=== PATIENT | male | born 1945 | race Caucasian/White ===

== ENCOUNTER 2017-08-16 10:29 | Emergency (ER) | payer MEDICARE, OTHER ==
[~2017-08-16] VITALS: Ht 190.5 cm; Wt 95.5 kg
[2017-08-16 10:40] VITALS: BP 139/65; PULSE 66; RESP 16; TEMP 98.1; O2SAT 96
[2017-08-16] MEDS ORDERED: SODIUM CHLORIDE 0.9% FLUSH 10 ML FLUSH IVF PRN (11:00)
[2017-08-16] MEDS ORDERED: PAIN PUMP DILAUDID (11:10)
[2017-08-16] MEDS ORDERED: OXYC-392 PO (11:10)
[2017-08-16] MEDS ORDERED: LUNE1TAB8 PO (11:10)
[2017-08-16] MEDS ORDERED: URINARY MED (11:10)
[2017-08-16 11:30] LABS: AUTOMATED NEUTROPHIL # 4.6 TH/MM3 (1.8-7.7); BASOPHIL # 0.2 TH/MM3 (0-0.2); BASOPHIL % 2.9 % (0.0-2.0); EOSINOPHIL # 0.2 TH/MM3 (0-0.4); EOSINOPHIL % 3.5 % (0.0-4.0); HEMATOCRIT 42.9 % (39.0-51.0); HEMOGLOBIN 13.9 GM/DL (13.0-17.0); LYMPH % 18.8 % (9.0-44.0); LYMPHOCYTE # 1.3 TH/MM3 (1.0-4.8); MEAN CELL VOLUME 96.1 FL (80.0-100.0); MEAN CORPUSCULAR HEMOGLOBIN 31.1 PG (27.0-34.0); MEAN CORPUSCULAR HGB CONC 32.4 % (32.0-36.0); MEAN PLATELET VOLUME 7.4 FL (7.0-11.0); MONO % 9.9 % (0.0-8.0); MONOCYTE # 0.7 TH/MM3 (0-0.9); NEUT % 64.9 % (16.0-70.0); PLATELET COUNT 215 TH/MM3 (150-450); RED BLOOD COUNT 4.47 MIL/MM3 (4.50-5.90); RED CELL DISTRIBUTION WIDTH 14.5 % (11.6-17.2)
--- NOTE | 2017-08-16 11:30 | RADRPT ---
EXAM DATE/TIME: 08/16/2017 11:08 [facility] COMPARISON: No previous studies available for comparison. INDICATIONS : Right leg swelling. MEDICAL HISTORY : Back pain. SURGICAL HISTORY : Back surgeries. Shoulder surgery. ENCOUNTER: Initial ACUITY: 1 week PAIN SCORE: 1/10 LOCATION: Right leg. TECHNIQUE: Venous ultrasound of the leg was performed from the inguinal ligament to the proximal calf. Real-judy e, color Doppler and spectral tracing, compression and augmentation techniques were used. FINDINGS: There is normal compressibility of the deep venous system from the inguinal region to the proximal ca lf. No echogenic clot is seen in the lumen of the common femoral, femoral, popliteal, and posterior tibial veins. There is a normal response of the venous system to proximal and distal augmentation an d respiration. CONCLUSION: Negative for deep venous thrombosis. . Stevan Paul MD FACR on August 16, 2017 at 11:27 Board Certified Radiologist. This report was verified electronically.
[2017-08-16 11:39] LABS: CHLORIDE 103 MEQ/L (98-107); SODIUM (NA) 140 MEQ/L (136-145)
[2017-08-16 11:42] LABS: ALBUMIN 3.6 GM/DL (3.4-5.0); CALCIUM 8.1 MG/DL (8.5-10.1); GLUCOSE,RANDOM 103 MG/DL (74-106)
[2017-08-16 11:43] LABS: BICARBONATE 30.6 MEQ/L (21.0-32.0); BLOOD UREA NITROGEN 13 MG/DL (7-18)
[2017-08-16 11:44] LABS: INTERNATIONAL NORMALIZED RATIO 1.2 RATIO; PROTHROMBIN TIME - PATIENT 11.8 SEC (9.8-11.6)
[2017-08-16 11:46] VITALS: O2SAT 98
[2017-08-16 11:46] LABS: ALT (GPT) 21 U/L (12-78); AST (GOT) 30 U/L (15-37); CREATININE 0.87 MG/DL (0.60-1.30); GLOMERULAR FILTRATION RATE 87 ML/MIN (>89)
[2017-08-16 11:48] LABS: TOTAL BILIRUBIN ADULT 0.6 MG/DL (0.2-1.0); TOTAL PROTEIN 6.8 GM/DL (6.4-8.2)
[2017-08-16 11:49] LABS: ALKALINE PHOSPHATASE 57 U/L (45-117)
--- NOTE | 2017-08-16 12:35 | RADRPT ---
EXAM DATE/TIME: 08/16/2017 11:52 [facility] COMPARISON: No previous studies available for comparison. INDICATIONS : Red, swollen, painful, right ankle for 1 week. no known injury MEDICAL HISTORY : None. SURGICAL HISTORY : Spinal stimulator ENCOUNTER: Initial ACUITY: 1 week PAIN SCORE: 2/10 LOCATION: Right ankle FINDINGS: Three view exam was performed of the right ankle. The bony structures are in normal alignment. No e vidence of fracture, dislocation, or soft tissue swelling. The ankle mortise is intact. No radiopaq ue foreign bodies are seen. Bony mineralization is normal. CONCLUSION: Negative for fracture. Generalized soft tissue swelling Stevan Paul MD FACR on August 16, 2017 at 12:33 Board Certified Radiologist. This report was verified electronically.
--- NOTE | 2017-08-16 12:36 | RADRPT ---
EXAM DATE/TIME: 08/16/2017 11:56 [facility] COMPARISON: No previous studies available for comparison. INDICATIONS : Chest pain MEDICAL HISTORY : None. SURGICAL HISTORY : Spinal stimulator ENCOUNTER: Initial ACUITY: 3 days PAIN SCORE: 1/10 LOCATION: Bilateral chest FINDINGS: A single view of the chest demonstrates the lungs to be symmetrically aerated without evidence of mas s, infiltrate or effusion. The cardiomediastinal contours are unremarkable. Spinal stimulator noted Osseous structures are intact. CONCLUSION: No acute disease. Stevan Paul MD FACR on August 16, 2017 at 12:34 Board Certified Radiologist. This report was verified electronically.
[2017-08-16] MEDS ORDERED: CLIN300C5 PO (12:42)
--- NOTE | 2017-08-16 12:42 | PD ---
HPI Chief Complaint: Edema Time Seen by Provider: 10:45 Travel History International Travel<30 days: No Contact w/Intl Traveler<30days: No Traveled to known affect area: No History of Present Illness HPI Patient is a 71 year old male who comes in complaining of right leg swelling. He says it has been going on for the past week. He says he is traveling to [place] tomorrow, so he wanted to get it check out. He says it does not cause him much pain. He says he has a lot of chronic back issues, so he does not notice any other pains. He denies any injury to the leg. He denies chest pain or SOB. He denies fever or chills. He says he has not noticed any wounds or breaks in his skin. He has not noticed that anything makes the swelling better or worse. PFSH Past Medical History Hx Anticoagulant Therapy: No Cardiovascular Problems: No Cerebrovascular Accident: No Diabetes: No Genitourinary: Yes (urinary frequency ) Musculoskeletal: Yes (chronic back pain) Influenza Vaccination: Yes Past Surgical History Other Surgery: Yes (multiple back surgeries, pain pump ) Social History Alcohol Use: No Tobacco Use: No Substance Use: No Allergies-Medications (Allergen,Severity, Reaction): Coded Allergies: cefuroxime (Verified Allergy, Severe, 08/16/17) Reported Meds & Prescriptions Reported Meds & Active Scripts Active Reported Lunesta (Eszopiclone) 1 Mg Tab 1 Mg PO HS PRN [pain pump dilaudid] Oxycodone (Oxycodone HCl) 5 Mg Tab 5 Mg PO Q4H PRN [urinary med] Review of Systems Except as stated in HPI: all other systems reviewed are Neg General / Constitutional: No: Fever, Chills HENT: No: Headaches, Lightheadedness Cardiovascular: No: Chest Pain or Discomfort Respiratory: No: Shortness of Breath Gastrointestinal: No: Nausea, Vomiting Musculoskeletal: Positive: Edema, No: Pain Skin: No Rash, No Itching Neurologic: No: Weakness, Dizziness Physical Exam Narrative GENERAL: Awake and alert, in no acute distress. SKIN: Focused skin assessment warm/dry. Erythema and warmth of the right lower leg. No wounds or evidence of abscess. HEAD: Atraumatic. Normocephalic. EYES: Pupils equal and round. No scleral icterus. ENT: Mucous membranes pink and moist. NECK: Trachea midline. No JVD. CARDIOVASCULAR: Regular rate and rhythm. No murmur appreciated. RESPIRATORY: No accessory muscle use. Clear to auscultation. Breath sounds equal bilaterally. GASTROINTESTINAL: Abdomen soft, non-tender, nondistended. MUSCULOSKELETAL: No obvious deformities. No clubbing. No cyanosis. 2+ edema of the right lower extremity. No calf tenderness. Pedal pulses intact. NEUROLOGICAL: Awake and alert. No obvious cranial nerve deficits. Motor grossly within normal limits. Normal speech. PSYCHIATRIC: Appropriate mood and affect; insight and judgment normal. Data Data Last Documented VS Vital Signs Date Time Temp Pulse Resp B/P (MAP) Pulse Ox O2 Delivery O2 Flow Rate FiO2 08/16/17 11:55 97 Room Air 08/16/17 10:40 98.1 66 16 139/65 (89) Orders Orders Complete Blood Count With Diff (08/16/17 10:51) Comprehensive Metabolic Panel (08/16/17 10:51) Act Partial Throm Time (Ptt) (08/16/17 10:51) Prothrombin Time / Inr (Pt) (08/16/17 10:51) Iv Access Insert/Monitor (08/16/17 10:51) Ecg Monitoring (08/16/17 10:51) Oximetry (08/16/17 10:51) Oxygen Administration (08/16/17 10:51) Us Leg Venous Doppler (08/16/17 10:51) Sodium Chloride 0.9% Flush (Ns Flush) (08/16/17 11:00) Chest, Single Ap (08/16/17 ) Ankle, Complete ([id number]) (08/16/17 ) Labs Laboratory Tests Test 08/16/17 11:25 White Blood Count 7.0 TH/MM3 Red Blood Count 4.47 MIL/MM3 Hemoglobin 13.9 GM/DL Hematocrit 42.9 % Mean Corpuscular Volume 96.1 FL Mean Corpuscular Hemoglobin 31.1 PG Mean Corpuscular Hemoglobin Concent 32.4 % Red Cell Distribution Width 14.5 % Platelet Count 215 TH/MM3 Mean Platelet Volume 7.4 FL Neutrophils (%) (Auto) 64.9 % Lymphocytes (%) (Auto) 18.8 % Monocytes (%) (Auto) 9.9 % Eosinophils (%) (Auto) 3.5 % Basophils (%) (Auto) 2.9 % Neutrophils # (Auto) 4.6 TH/MM3 Lymphocytes # (Auto) 1.3 TH/MM3 Monocytes # (Auto) 0.7 TH/MM3 Eosinophils # (Auto) 0.2 TH/MM3 Basophils # (Auto) 0.2 TH/MM3 CBC Comment DIFF FINAL Differential Comment Prothrombin Time 11.8 SEC Prothromb Time International Ratio 1.2 RATIO Activated Partial Thromboplast Time 27.3 SEC Blood Urea Nitrogen 13 MG/DL Creatinine 0.87 MG/DL Random Glucose 103 MG/DL Total Protein 6.8 GM/DL Albumin 3.6 GM/DL Calcium Level 8.1 MG/DL Alkaline Phosphatase 57 U/L Aspartate Amino Transf (AST/SGOT) 30 U/L Alanine Aminotransferase (ALT/SGPT) 21 U/L Total Bilirubin 0.6 MG/DL Sodium Level 140 MEQ/L Potassium Level 4.0 MEQ/L Chloride Level 103 MEQ/L Carbon Dioxide Level 30.6 MEQ/L Anion Gap 6 MEQ/L Estimat Glomerular Filtration Rate 87 ML/MIN MDM Medical Decision Making Medical Screen Exam Complete: Yes Emergency Medical Condition: Yes Medical Record Reviewed: Yes Differential Diagnosis DVT vs cellulitis vs arthritis Narrative Course Patient is a 71-year-old male comes in complaining of right leg swelling. Exam shows edema of the right leg with erythema and warmth of the lower extremity. IV established, labs sent. Labs show no acute abnormalities. Doppler ultrasound performed shows no evidence of DVT. Chest x-ray shows no evidence of cardiomegaly. X-ray of the ankle shows no acute abnormalities. Patient will be treated for cellulitis with antibiotics. Advised to return any time for any worsening symptoms. Advised to return in a week for repeat ultrasound if her symptoms do not improve. Advised follow-up with a primary care doctor. Diagnosis Primary Impression: Cellulitis Qualified Codes: L03.115 - Cellulitis of right lower limb Patient Instructions: Cellulitis (ED), General Instructions Additional Instructions: Take all of your antibiotic. Follow-up with a primary care doctor. Return to the ED as needed for any worsening symptoms. Scripts Clindamycin (Clindamycin) 300 Mg Cap 300 MG PO Q6H for Infection for 7 Days, #28 CAP 0 Refills Prov: Leeann Bonilla MD 08/16/17 Disposition: DISCHARGE HOME Condition: Stable Leeann Bonilla MD Aug 16, 2017 12:42
== END 2017-08-16 12:46 | disposition home or self-care (01) ==
LOC: PHED 10:29
DX: L03.115 Cellulitis of right lower limb (principal); Z79.899 Other long term (current) drug therapy
CPT/HCPCS: 71010; 73610; 80053; 85025; 85610; 85730; 93971; 99285

== ENCOUNTER 2017-09-26 22:52 | Inpatient (IN) | payer MEDICARE, OTHER ==
[~2017-09-26] VITALS: Ht 190.5 cm; Wt 92.3 kg
[~2017-09-26 22:52] MED LIST: CLIN300C5 PO; LUNE1TAB8 PO; OXYC-392 PO; PAIN PUMP DILAUDID; URINARY MED
[2017-09-26 23:03] VITALS: BP 193/90; PULSE 88; RESP 20; TEMP 98.1; O2SAT 96
[2017-09-26] MEDS ORDERED: POTASOL PO (23:21)
[2017-09-26] MEDS ORDERED: ZANT150T2 PO (23:21)
[2017-09-26] MEDS ORDERED: WELLTAB39 PO (23:21)
[2017-09-26 23:26] VITALS: BP 189/82; PULSE 77; RESP 18; O2SAT 96
[2017-09-26] MEDS ORDERED: SODIUM CHLOR 0.9% 1000 ML INJ 1,000 ML IV SCH (23:43)
[2017-09-26] MEDS ORDERED: ONDANSETRON HCL 4 MG/2 ML VIAL IVP ONE (23:45)
[2017-09-26] MEDS ORDERED: SODIUM CHLORIDE 0.9% FLUSH 10 ML FLUSH IV FLUSH PRN (23:45)
--- NOTE | 2017-09-26 23:50 | PD ---
HPI Chief Complaint: GI Complaint Time Seen by Provider: 23:43 Travel History International Travel<30 days: No Contact w/Intl Traveler<30days: No Traveled to known affect area: No History of Present Illness HPI The patient is a 71-year-old male that complains of nausea vomiting and bilateral lower abdominal pain and constipation for 4 hours. The patient is on a Dilaudid pump and takes oxycodone 10 mg daily. He has been on Relistor 2 weeks ago for opioid-induced constipation. He has not had any relief*in 2 weeks except 2 hours ago when he was given a shot of 6 mg subcutaneous. He has never had any abdominal surgeries and still has his appendix and gallbladder. He has had multiple enemas at home and takes an [id number] stool softener. He takes the narcotics for chronic back pain. PFSH Past Medical History Hx Anticoagulant Therapy: No Cardiovascular Problems: No Cerebrovascular Accident: No Diabetes: No Diminished Hearing: No Genitourinary: Yes (urinary frequency ) Musculoskeletal: Yes (chronic back pain) Tetanus Vaccination: Unknown Influenza Vaccination: No Past Surgical History Other Surgery: Yes (multiple back surgeries, pain pump ) Social History Alcohol Use: No Tobacco Use: No Substance Use: No Allergies-Medications (Allergen,Severity, Reaction): Coded Allergies: cefuroxime (Verified Allergy, Severe, 09/26/17) Reported Meds & Prescriptions Reported Meds & Active Scripts Active Reported Zantac (Ranitidine HCl) 150 Mg Tab 150 Mg PO DAILY Potassium Citrate-Citric Acid 1,100-334 Mg/5 Ml Soln 15 Ml PO QID Wellbutrin Xl 24 HR (Bupropion HCl) 300 Mg Tab 300 Mg PO DAILY Lunesta (Eszopiclone) 1 Mg Tab 1 Mg PO HS PRN [pain pump dilaudid] Oxycodone (Oxycodone HCl) 5 Mg Tab 5 Mg PO Q4H PRN [urinary med] Review of Systems Except as stated in HPI: all other systems reviewed are Neg Physical Exam Narrative GENERAL: The patient is alert, oriented 3 in moderate apparent distress with his abdominal discomfort. His vital signs show blood pressure 193/90 but otherwise are normal. SKIN: Focused skin assessment warm/dry. HEAD: Atraumatic. Normocephalic. EYES: Pupils equal and round. No scleral icterus. No injection or drainage. ENT: No nasal bleeding or discharge. Mucous membranes pink and moist. NECK: Trachea midline. No JVD. CARDIOVASCULAR: Regular rate and rhythm. No murmur appreciated. RESPIRATORY: No accessory muscle use. Clear to auscultation. Breath sounds equal bilaterally. GASTROINTESTINAL: Abdomen soft, with tenderness to direct palpation in the left upper quadrant and right lower quadrant, nondistended. Hepatic and splenic margins not palpable. No guarding or rebound is present. MUSCULOSKELETAL: No obvious deformities. No clubbing. No cyanosis. No edema. NEUROLOGICAL: Awake and alert. No obvious cranial nerve deficits. Motor grossly within normal limits. Normal speech. PSYCHIATRIC: Appropriate mood and affect; insight and judgment normal. Data Data Last Documented VS Vital Signs Date Time Temp Pulse Resp B/P (MAP) Pulse Ox O2 Delivery O2 Flow Rate FiO2 09/26/17 23:26 77 18 189/82 (117) 96 Room Air 09/26/17 23:03 98.1 Orders Orders Complete Blood Count With Diff (09/26/17 23:43) Comprehensive Metabolic Panel (09/26/17 23:43) Lipase (09/26/17 23:43) Urinalysis - C+S If Indicated (09/26/17 23:43) Ct Abd/Pel W Iv Contrast(Rout) (09/26/17 23:43) Iv Access Insert/Monitor (09/26/17 23:43) Ecg Monitoring (09/26/17 23:43) Oximetry (09/26/17 23:43) Ondansetron Inj (Zofran Inj) (09/26/17 23:45) Sodium Chlor 0.9% 1000 Ml Inj (Ns 1000 M (09/26/17 23:43) Sodium Chloride 0.9% Flush (Ns Flush) (09/26/17 23:45) Iohexol 350 Inj (Omnipaque 350 Inj) (09/27/17 00:50) Prothrombin Time / Inr (Pt) (09/27/17 01:14) Act Partial Throm Time (Ptt) (09/27/17 01:14) Admit To Inpatient (09/27/17 ) Vital Signs (Adult) Q4H (09/27/17 01:23) Activity Oob With Assistance (09/27/17 01:23) Diet Npo (09/27/17 Breakfast) Sodium Chlor 0.9% 1000 Ml Inj (Ns 1000 M (09/27/17 01:23) Sodium Chloride 0.9% Flush (Ns Flush) (09/27/17 01:30) Sodium Chloride 0.9% Flush (Ns Flush) (09/27/17 09:00) Acetaminophen (Tylenol) (09/27/17 01:30) Ondansetron Inj (Zofran Inj) (09/27/17 01:30) Comprehensive Metabolic Panel (09/28/17 06:00) Complete Blood Count With Diff (09/28/17 06:00) Scd Bilateral/Knee High MARGARITA.BID (09/27/17 01:23) Naloxone Inj (Narcan Inj) (09/27/17 01:30) Docusate Sodium-Senna (Shantell-Colace) (09/27/17 09:00) Magnesium Hydroxide Liq (Milk Of Magnesi (09/27/17 01:30) Sennosides (Senokot) (09/27/17 01:30) Bisacodyl Supp (Dulcolax Supp) (09/27/17 01:30) Lactulose Liq (Lactulose Liq) (09/27/17 01:30) Inpatient Certification (09/27/17 ) Piperacil-Tazo 3.375 Gm Premix (Zosyn 3. (09/27/17 02:00) Admit Order (Ed Use Only) (09/27/17 01:26) Hydromorphone Pf Inj (Dilaudid Pf Inj) (09/27/17 01:30) Labs Laboratory Tests Test 09/26/17 23:50 09/27/17 00:00 09/27/17 00:50 White Blood Count 14.2 TH/MM3 Red Blood Count 5.01 MIL/MM3 Hemoglobin 15.5 GM/DL Hematocrit 45.9 % Mean Corpuscular Volume 91.5 FL Mean Corpuscular Hemoglobin 30.9 PG Mean Corpuscular Hemoglobin Concent 33.8 % Red Cell Distribution Width 13.2 % Platelet Count 286 TH/MM3 Mean Platelet Volume 8.0 FL Neutrophils (%) (Auto) 87.2 % Lymphocytes (%) (Auto) 6.5 % Monocytes (%) (Auto) 4.1 % Eosinophils (%) (Auto) 0.6 % Basophils (%) (Auto) 1.6 % Neutrophils # (Auto) 12.4 TH/MM3 Lymphocytes # (Auto) 0.9 TH/MM3 Monocytes # (Auto) 0.6 TH/MM3 Eosinophils # (Auto) 0.1 TH/MM3 Basophils # (Auto) 0.2 TH/MM3 CBC Comment DIFF FINAL Differential Comment Blood Urea Nitrogen 15 MG/DL Creatinine 0.87 MG/DL Random Glucose 144 MG/DL Total Protein 8.0 GM/DL Albumin 3.5 GM/DL Calcium Level 9.5 MG/DL Alkaline Phosphatase 62 U/L Aspartate Amino Transf (AST/SGOT) 23 U/L Alanine Aminotransferase (ALT/SGPT) 21 U/L Total Bilirubin 0.5 MG/DL Sodium Level 135 MEQ/L Potassium Level 4.1 MEQ/L Chloride Level 101 MEQ/L Carbon Dioxide Level 27.7 MEQ/L Anion Gap 6 MEQ/L Estimat Glomerular Filtration Rate 87 ML/MIN Lipase 59 U/L Prothrombin Time 11.8 SEC Prothromb Time International Ratio 1.2 RATIO Activated Partial Thromboplast Time 31.1 SEC Urine Color YELLOW Urine Turbidity CLEAR Urine pH 8.5 Urine Specific Ethel 1.020 Urine Protein NEG mg/dL Urine Glucose (UA) NEG mg/dL Urine Ketones 15 mg/dL Urine Occult Blood TRACE Urine Nitrite NEG Urine Bilirubin NEG Urine Leukocyte Esterase NEG Urine RBC 3-5 /hpf Urine WBC 0-2 /hpf Urine Squamous Epithelial Cells 0-5 /hpf Urine Bacteria NONE /hpf Microscopic Urinalysis Comment CULT NOT INDICATED MDM Medical Decision Making Medical Screen Exam Complete: Yes Emergency Medical Condition: Yes Medical Record Reviewed: Yes Interpretation(s) The CBC shows a white count of 14,200 with 87% neutrophils. The complete metabolic profile shows a GFR of 87, glucose 144 and sodium 135 but is otherwise unremarkable. The lipase is normal. The CT abdomen pelvis shows acute cholecystitis. Also noted is diverticulosis without any evidence for diverticulitis and renal cysts with malrotated right kidney. The urinalysis shows trace occult blood with 15 ketones but is otherwise unremarkable and culture is not indicated. The EKG shows sinus rhythm with a rate of [address] elevation or depression. Differential Diagnosis Opioid-induced constipation, appendicitis, cholecystitis, colitis, electrolyte disorder, anemia, cholelithiasis with colic, urinary tract infection, pyelonephritis Narrative Course It is now 0118 in the morning and the pain is shifted to the right upper quadrant and has increased. The patient has acute cholecystitis. The patient' s pain is increasing, we are going to be giving him Dilaudid at this time. The patient will be admitted to the [facility] service, Dr. Olvera and Dr. Salazar will be consulting. I discussed the patient with both physicians. Physician Communication Physician Communication I discussed the patient with Drs. Salazar and Wade. The patient will be admitted to [facility]. Diagnosis Primary Impression: Acute cholecystitis Tez Chiang MD Sep 26, 2017 23:50
[2017-09-27] VITALS (7 sets, daily range): BP systolic 140–186; BP diastolic 68–86; PULSE 75–89; RESP 12–20; TEMP 96.7–100.7; O2SAT 92–98
[2017-09-27 00:09] LABS: AUTOMATED NEUTROPHIL # 12.4 TH/MM3 (1.8-7.7); BASOPHIL # 0.2 TH/MM3 (0-0.2); BASOPHIL % 1.6 % (0.0-2.0); EOSINOPHIL # 0.1 TH/MM3 (0-0.4); EOSINOPHIL % 0.6 % (0.0-4.0); HEMATOCRIT 45.9 % (39.0-51.0); HEMOGLOBIN 15.5 GM/DL (13.0-17.0); LYMPH % 6.5 % (9.0-44.0); LYMPHOCYTE # 0.9 TH/MM3 (1.0-4.8); MEAN CELL VOLUME 91.5 FL (80.0-100.0); MEAN CORPUSCULAR HEMOGLOBIN 30.9 PG (27.0-34.0); MEAN CORPUSCULAR HGB CONC 33.8 % (32.0-36.0); MONO % 4.1 % (0.0-8.0); MONOCYTE # 0.6 TH/MM3 (0-0.9); NEUT % 87.2 % (16.0-70.0); PLATELET COUNT 286 TH/MM3 (150-450); RED BLOOD COUNT 5.01 MIL/MM3 (4.50-5.90); RED CELL DISTRIBUTION WIDTH 13.2 % (11.6-17.2); WHITE BLOOD COUNT 14.2 TH/MM3 (4.0-11.0)
[2017-09-27 00:19] LABS: CHLORIDE 101 MEQ/L (98-107); SODIUM (NA) 135 MEQ/L (136-145)
[2017-09-27 00:23] LABS: ALBUMIN 3.5 GM/DL (3.4-5.0); BICARBONATE 27.7 MEQ/L (21.0-32.0); BLOOD UREA NITROGEN 15 MG/DL (7-18); CALCIUM 9.5 MG/DL (8.5-10.1); GLUCOSE,RANDOM 144 MG/DL (74-106)
[2017-09-27 00:26] LABS: ALT (GPT) 21 U/L (12-78); AST (GOT) 23 U/L (15-37); CREATININE 0.87 MG/DL (0.60-1.30); GLOMERULAR FILTRATION RATE 87 ML/MIN (>89)
[2017-09-27 00:28] LABS: TOTAL BILIRUBIN ADULT 0.5 MG/DL (0.2-1.0)
[2017-09-27 00:29] LABS: ALKALINE PHOSPHATASE 62 U/L (45-117)
[2017-09-27] MEDS ORDERED: IOHEXOL 350 MG/ML 10 ML VIAL (for RAD DIAG) IVCONTRAST ONE (00:50)
[2017-09-27 01:04] LABS: BILIRUBIN, URINE NEG (NEG); BLOOD, URINE TRACE (NEG); GLUCOSE,URINE NEG (NEG); KETONE, URINE 15 mg/dL (NEG); NITRITE,URINE NEG (NEG); PH, URINE 8.5 (5.0-8.5); URINE LEUKOCYTE ESTERASE NEG (NEG)
--- NOTE | 2017-09-27 01:10 | RADRPT ---
EXAM DATE/TIME: 09/27/2017 00:46 [facility] COMPARISON: No previous studies available for comparison. INDICATIONS : Severe abdominal pain, constipation, nausea and vomiting for 4 days IV CONTRAST: 96 cc Omnipaque 350 (iohexol) IV ORAL CONTRAST: No oral contrast ingested. RADIATION DOSE: 13.44 CTDIvol (mGy) MEDICAL HISTORY : chronic back pain SURGICAL HISTORY : multiple back surgeries, pain pump ENCOUNTER: Initial ACUITY: 4 - 6 days PAIN SCALE: 10/10 LOCATION: abdomen TECHNIQUE: Volumetric scanning of the abdomen and pelvis was performed. Using automated exposure control and ad justment of the mA and/or kV according to patient size, radiation dose was kept as low as reasonably achievable to obtain optimal diagnostic quality images. DICOM format image data is available electro nically for review and comparison. FINDINGS: Few calcified granulomas are noted in the spleen. The pancreas, adrenals are unremarkable. 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 Scattered left bakari al cysts are noted the largest measuring up to 2.8 cm the middle pole. The urinary bladder, prostate unremarkable. There is diverticulosis of the sigmoid colon and descending colon without evidence of d iverticulitis. A moderate amount of stool is seen within the large bowel. There are no dilated loops seen to suggest obstruction. The gallbladder is abnormal. It is mildly distended and there is pericho lecystic stranding identified. There is mild wall thickening. The appearance is consistent with nigel cystitis. The patient has a spinal stimulator and the leads are seen within the posterior aspect of t he spinal canal is well as apparent pain with lead terminating at T11 anteriorly within the thecal sa c. There are post laminectomy and posterior fusion changes of the lower lumbar spine as well as arthr odesis screws across the right sacroiliac joint. CONCLUSION: 1. Abnormal appearance of the gallbladder characteristic of cholecystitis. 2. Diverticulosis without diverticulitis. 3. Renal cysts and malrotated right kidney. Ruben Gamboa MD on September 27, 2017 at 1:04 Board Certified Radiologist. This report was verified electronically.
[2017-09-27 01:12] LABS: SQUAMOUS EPITHELIAL CELL URINE 0-5 /hpf (0-5); URINE COLOR YELLOW (YELLW/STRAW); WBC, URINE 0-2 /hpf (0-5)
[2017-09-27 01:27] LABS: INTERNATIONAL NORMALIZED RATIO 1.2 RATIO; PROTHROMBIN TIME - PATIENT 11.8 SEC (9.8-11.6)
[2017-09-27] MEDS ORDERED: ONDANSETRON HCL 4 MG/2 ML VIAL IV ONE (01:30)
[2017-09-27] MEDS ORDERED: ACETAMINOPHEN 325 MG TAB PO PRN (01:30)
[2017-09-27] MEDS ORDERED: SENNOSIDES 8.6 MG TAB PO PRN (01:30)
[2017-09-27] MEDS ORDERED: SODIUM CHLORIDE 0.9% FLUSH 10 ML FLUSH IV FLUSH PRN (01:30)
[2017-09-27] MEDS ORDERED: MAGNESIUM HYDROXIDE SUSP 30 ML CUP PO PRN (01:30)
[2017-09-27] MEDS ORDERED: ONDANSETRON HCL 4 MG/2 ML VIAL IVP PRN (01:30)
[2017-09-27] MEDS ORDERED: HYDROmorphone HCL PF 1 MG/ML VIAL IVP ONE (01:30)
[2017-09-27] MEDS ORDERED: NALOXONE HCL 0.4 MG/ML AMP IV PUSH PRN (01:30)
[2017-09-27] MEDS: SODIUM CHLOR 0.9% 1000 ML INJ 1,000 ML IV SCH ×3 (01:33→20:53)
[2017-09-27] MEDS: HYDROmorphone HCL PF 2 MG/ML VIAL IV PUSH PRN ×2 (01:33→06:03)
[2017-09-27] MEDS: PIPERACIL-TAZO 3.375 GM PREMIX 50 ML IV SCH ×4 (01:33→20:52)
[2017-09-27] MEDS: BISACODYL 10 MG SUPP RECTAL PRN (06:08)
--- NOTE | 2017-09-27 08:51 | HHI.HP ---
[facility] Physician Dewayne Nichols M.D. Admission Diagnosis acute cholecystitis Diagnoses: Chief Complaint: Abdominal pain and nausea Travel History International Travel<30 Days: No Contact w/Intl Traveler <30 Da: No Traveled to Known Affected Are: No History of Present Illness This patient is a 71-year-old gentleman with a history of chronic pain on physical Dilaudid pump who came in with acute onset of right upper quadrant abdominal pain associated with severe nausea and vomiting. Pain was severe and is somewhat relieved with Dilaudid although not resolved. He actually has had intermittent abdominal discomfort over the last several weeks. He denies any abdominal surgeries but admits he has chronic constipation which is per his providers due to opioids. He has recently been started on relistor with some relief. The patient has not had any fevers or chills, there is been no hematemesis or hematochezia. Patient is admitted to the hospital due to these symptoms. A CT of the abdomen and pelvis was worrisome for cholecystitis. Review of Systems Constitutional: DENIES: Diaphoretic episodes, Fatigue, Fever, Weight gain, Weight loss, Chills, Dizziness, Change in appetite, Night Sweats Endocrine: DENIES: Heat/cold intolerance, Polydipsia, Polyuria, Polyphagia Eyes: DENIES: Blurred vision, Diplopia, Eye inflammation, Eye pain, Vision loss , Photosensitivity, Double Vision Ears, nose, mouth, throat: DENIES: Tinnitus, Hearing loss, Vertigo, Nasal discharge, Oral lesions, Throat pain, Hoarseness, Ear Pain, Running Nose, Epistaxis, Sinus Pain, Toothache, Odynophagia Respiratory: DENIES: Apneas, Cough, Snoring, Wheezing, Hemoptysis, Sputum production, Shortness of breath Cardiovascular: DENIES: Chest pain, Palpitations, Syncope, Dyspnea on Exertion , PND, Lower Extremity Edema, Orthopnea, Claudication Gastrointestinal: COMPLAINS OF: Abdominal pain, Constipation, Nausea, Vomiting , DENIES: Black stools, Bloody stools, Diarrhea, Difficulty Swallowing, Anorexia Genitourinary: DENIES: Sexual dysfunction, Urinary frequency, Urinary incontinence, Urgency, Hematuria, Dysuria, Nocturia, Penile Discharge, Testicular Pain, Testicular Swelling Musculoskeletal: DENIES: Joint pain, Muscle aches, Stiffness, Joint Swelling, Back pain, Neck pain Integumentary: DENIES: Abnormal pigmentation, Nail changes, Pruritus, Rash Hematologic/lymphatic: DENIES: Bruising, Lymphadenopathy Immunologic/allergic: DENIES: Eczema, Urticaria Neurologic: DENIES: Abnormal gait, Headache, Localized weakness, Paresthesias, Seizures, Speech Problems, Tremor, Poor Balance Psychiatric: DENIES: Anxiety, Confusion, Mood changes, Depression, Hallucinations, Agitation, Suicidal Ideation, Homicidal Ideation, Delusions Except as stated in HPI: all other systems reviewed are Neg Past Family Social History Past Medical History Chronic back pain Anxiety/depression Geronimo's esophagitis Past Surgical History Multiple back surgeries with Dilaudid implanted pump Reported Medications Reviewed in the EMR, recently started relistor for constipation related to opioids Allergies: Coded Allergies: cefuroxime (Verified Allergy, Severe, 09/26/17) Active Ordered Medications In the EMR Family History Mother and father both in their 80s Social History No tobacco or alcohol dependency, lives with his Physical Exam Vital Signs Vital Signs Date Time Temp Pulse Resp B/P (MAP) Pulse Ox O2 Delivery O2 Flow Rate FiO2 09/27/17 03:04 76 18 97 09/27/17 03:03 97.1 78 20 184/84 (117) 95 09/27/17 02:40 78 18 176/84 (114) 98 Room Air 09/27/17 01:51 78 18 186/86 (119) 97 Room Air 09/26/17 23:26 77 18 189/82 (117) 96 Room Air 09/26/17 23:03 98.1 88 20 193/90 (124) 96 Physical Exam GENERAL: This is a well-nourished, well-developed patient, complaining of back and right upper quadrant pain SKIN: No rashes, ecchymoses or lesions. Cool and dry. HEAD: Atraumatic. Normocephalic. No temporal or scalp tenderness. EYES: Pupils equal round and reactive. Extraocular motions intact. No scleral icterus. No injection or drainage. ENT: Nose without bleeding, purulent drainage or septal hematoma. Throat without erythema, tonsillar hypertrophy or exudate. Uvula midline. Airway patent. NECK: Trachea midline. No JVD or lymphadenopathy. Supple, nontender, no meningeal signs. CARDIOVASCULAR: Regular rate and rhythm without murmurs, gallops, or rubs. RESPIRATORY: Clear to auscultation. Breath sounds equal bilaterally. No wheezes , rales, or rhonchi. GASTROINTESTINAL: There is right upper quadrant pain with positive Spencer sign, dry mucous membranes, Abdomen soft, non-tender, nondistended. No hepato- splenomegaly, or palpable masses. No guarding. MUSCULOSKELETAL: Extremities without clubbing, cyanosis, or edema. No joint tenderness, effusion, or edema noted. No calf tenderness. Negative Homans sign bilaterally. NEUROLOGICAL: Awake and alert. Cranial nerves II through XII intact. Motor and sensory grossly within normal limits. Five out of 5 muscle strength in all muscle groups. Normal speech. Laboratory Laboratory Tests Test 09/26/17 23:50 09/27/17 00:00 09/27/17 00:50 White Blood Count 14.2 Red Blood Count 5.01 Hemoglobin 15.5 Hematocrit 45.9 Mean Corpuscular Volume 91.5 Mean Corpuscular Hemoglobin 30.9 Mean Corpuscular Hemoglobin Concent 33.8 Red Cell Distribution Width 13.2 Platelet Count 286 Mean Platelet Volume 8.0 Neutrophils (%) (Auto) 87.2 Lymphocytes (%) (Auto) 6.5 Monocytes (%) (Auto) 4.1 Eosinophils (%) (Auto) 0.6 Basophils (%) (Auto) 1.6 Neutrophils # (Auto) 12.4 Lymphocytes # (Auto) 0.9 Monocytes # (Auto) 0.6 Eosinophils # (Auto) 0.1 Basophils # (Auto) 0.2 CBC Comment DIFF FINAL Differential Comment Blood Urea Nitrogen 15 Creatinine 0.87 Random Glucose 144 Total Protein 8.0 Albumin 3.5 Calcium Level 9.5 Alkaline Phosphatase 62 Aspartate Amino Transf (AST/SGOT) 23 Alanine Aminotransferase (ALT/SGPT) 21 Total Bilirubin 0.5 Sodium Level 135 Potassium Level 4.1 Chloride Level 101 Carbon Dioxide Level 27.7 Anion Gap 6 Estimat Glomerular Filtration Rate 87 Lipase 59 Prothrombin Time 11.8 Prothromb Time International Ratio 1.2 Activated Partial Thromboplast Time 31.1 Urine Color YELLOW Urine Turbidity CLEAR Urine pH 8.5 Urine Specific Gordon 1.020 Urine Protein NEG Urine Glucose (UA) NEG Urine Ketones 15 Urine Occult Blood TRACE Urine Nitrite NEG Urine Bilirubin NEG Urine Leukocyte Esterase NEG Urine RBC 3-5 Urine WBC 0-2 Urine Squamous Epithelial Cells 0-5 Urine Bacteria NONE Microscopic Urinalysis Comment CULT NOT INDICATED Result Diagram: 09/26/17234909/26/172349 Imaging Last Impressions Abdomen/Pelvis CT 09/26/172342 Signed Impressions: Service Date/Time: Wednesday, September 27, 2017 00:46 - CONCLUSION: 1. Abnormal appearance of the gallbladder characteristic of cholecystitis. 2. Diverticulosis without diverticulitis. 3. Renal cysts and malrotated right kidney. MD Alicia Hill VTE Risk Assessment Alicia VTE Risk Assessment: Mod/High Risk (score >= 2) VTE Pharm Contraindication: preop for surgery Caprini Risk Assessment Model Point Value = 1 Point Value = 2 Point Value = 3 Point Value = 5 Age 41-60 Minor surgery BMI > 25 kg/m2 Swollen legs Varicose veins or History of unexplained or recurrent spontaneous Oral contraceptives or hormone replacement Sepsis (< 1 month) Serious lung disease, including pneumonia (< 1 month) Abnormal pulmonary function Acute myocardial infarction Congestive heart failure (< 1 month) History of inflammatory bowel disease Medical patient at bed rest Age 61-74 Arthroscopic surgery Major open surgery (> 45 min) Laparoscopic surgery (> 45 min) Malignancy Confined to bed (> 72 hours) Immobilizing plaster cast Central venous access Age >= 75 History of VTE Family history of VTE Factor V Leiden Prothrombin [id number] Lupus anticoagulant Anticardiolipin antibodies Elevated serum homocysteine Heparin-induced thrombocytopenia Other congenital or acquired thrombophilia Stroke (< 1 month) Elective arthroplasty Hip, pelvis, or leg fracture Acute spinal cord injury (< 1 month) Prophylaxis Regimen Total Risk Factor Score Risk Level Prophylaxis Regimen 0-1 Low Early ambulation 2 Moderate Order ONE of the following: *Sequential Compression Device (SCD) *Heparin 5000 units SQ BID 3-4 Higher Order ONE of the following medications: *Heparin 5000 units SQ TID *Enoxaparin/Lovenox 40 mg SQ daily (WT < 150 kg, CrCl > 30 mL/min) *Enoxaparin/Lovenox 30 mg SQ daily (WT < 150 kg, CrCl > 10-29 mL/min) *Enoxaparin/Lovenox 30 mg SQ BID (WT < 150 kg, CrCl > 30 mL/min) AND/OR *Sequential Compression Device (SCD) 5 or more Highest Order ONE of the following medications: *Heparin 5000 units SQ TID (Preferred with Epidurals) *Enoxaparin/Lovenox 40 mg SQ daily (WT < 150 kg, CrCl > 30 mL/min) *Enoxaparin/Lovenox 30 mg SQ daily (WT < 150 kg, CrCl > 10-29 mL/min) *Enoxaparin/Lovenox 30 mg SQ BID (WT < 150 kg, CrCl > 30 mL/min) AND *Sequential Compression Device (SCD) Assessment and Plan Problem List: (1) Chronic back pain ICD Code: M54.9 - Dorsalgia, unspecified; G89.29 - Other chronic pain Plan: Patient on Dilaudid with Percocet at home due to chronic back pain. Pain management (2) Constipation due to opioid therapy ICD Code: K59.03 - Drug induced constipation; T40.2X5A - Adverse effect of other opioids, initial encounter Plan: Ptn on Relistor (3) Acute cholecystitis ICD Code: K81.0 - Acute cholecystitis Status: Acute Plan: Surgery evaluation pending Continue with nothing by mouth status, IV hydration, continue with IV Dilaudid and empiric Zosyn Physician Certification 2 Midnight Certification Type: Admission for Inpatient Services Order for Inpatient Services The services are ordered in accordance with Medicare regulations or non- Medicare payer requirements, as applicable. In the case of services not specified as inpatient-only, they are appropriately provided as inpatient services in accordance with the 2-midnight benchmark. Estimated LOS (days): 3 3 days is the estimated time the patient will need to remain in the hospital, assuming treatment plan goals are met and no additional complications. Post-Hospital Plan: Teressa Phillip MD Sep 27, 2017 08:51
[2017-09-27] MEDS: SODIUM CHLORIDE 0.9% FLUSH 10 ML FLUSH IV FLUSH SCH ×2 (09:00→20:53)
[2017-09-27] MEDS: DOCUSATE SODIUM 50 MG/SENNA 8.6 MG TAB PO SCH ×2 (09:04→20:54)
[2017-09-27] MEDS: buPROPion HCL 150 MG SUSTAINED RELEASE TAB PO SCH ×2 (09:04→20:55)
--- NOTE | 2017-09-27 11:29 | PD.CAR.PN ---
CVT Progress Note Subjective/Hospital Course: Consult received Full dictation TF Kinga Rodriguez Objective: Vital Signs Date Time Temp Pulse Resp B/P (MAP) Pulse Ox O2 Delivery O2 Flow Rate FiO2 09/27/17 08:00 97.0 77 14 177/81 (113) 93 09/27/17 03:04 76 18 97 09/27/17 03:03 97.1 78 20 184/84 (117) 95 09/27/17 02:40 78 18 176/84 (114) 98 Room Air 09/27/17 01:51 78 18 186/86 (119) 97 Room Air 09/26/17 23:26 77 18 189/82 (117) 96 Room Air 09/26/17 23:03 98.1 88 20 193/90 (124) 96 Labs: Laboratory Tests Test 09/26/17 23:50 09/27/17 00:00 09/27/17 00:50 White Blood Count 14.2 TH/MM3 (4.0-11.0) Red Blood Count 5.01 MIL/MM3 (4.50-5.90) Hemoglobin 15.5 GM/DL (13.0-17.0) Hematocrit 45.9 % (39.0-51.0) Mean Corpuscular Volume 91.5 FL (80.0-100.0) Mean Corpuscular Hemoglobin 30.9 PG (27.0-34.0) Mean Corpuscular Hemoglobin Concent 33.8 % (32.0-36.0) Red Cell Distribution Width 13.2 % (11.6-17.2) Platelet Count 286 TH/MM3 (150-450) Mean Platelet Volume 8.0 FL (7.0-11.0) Neutrophils (%) (Auto) 87.2 % (16.0-70.0) Lymphocytes (%) (Auto) 6.5 % (9.0-44.0) Monocytes (%) (Auto) 4.1 % (0.0-8.0) Eosinophils (%) (Auto) 0.6 % (0.0-4.0) Basophils (%) (Auto) 1.6 % (0.0-2.0) Neutrophils # (Auto) 12.4 TH/MM3 (1.8-7.7) Lymphocytes # (Auto) 0.9 TH/MM3 (1.0-4.8) Monocytes # (Auto) 0.6 TH/MM3 (0-0.9) Eosinophils # (Auto) 0.1 TH/MM3 (0-0.4) Basophils # (Auto) 0.2 TH/MM3 (0-0.2) CBC Comment DIFF FINAL Differential Comment Blood Urea Nitrogen 15 MG/DL (7-18) Creatinine 0.87 MG/DL (0.60-1.30) Random Glucose 144 MG/DL (74-106) Total Protein 8.0 GM/DL (6.4-8.2) Albumin 3.5 GM/DL (3.4-5.0) Calcium Level 9.5 MG/DL (8.5-10.1) Alkaline Phosphatase 62 U/L (45-117) Aspartate Amino Transf (AST/SGOT) 23 U/L (15-37) Alanine Aminotransferase (ALT/SGPT) 21 U/L (12-78) Total Bilirubin 0.5 MG/DL (0.2-1.0) Sodium Level 135 MEQ/L (136-145) Potassium Level 4.1 MEQ/L (3.5-5.1) Chloride Level 101 MEQ/L (98-107) Carbon Dioxide Level 27.7 MEQ/L (21.0-32.0) Anion Gap 6 MEQ/L (5-15) Estimat Glomerular Filtration Rate 87 ML/MIN (>89) Lipase 59 U/L (73-393) Prothrombin Time 11.8 SEC (9.8-11.6) Prothromb Time International Ratio 1.2 RATIO Activated Partial Thromboplast Time 31.1 SEC (24.3-30.1) Urine Color YELLOW (YELLW/STRAW) Urine Turbidity CLEAR (CLEAR) Urine pH 8.5 (5.0-8.5) Urine Specific [place] 1.020 (1.002-1.035) Urine Protein NEG mg/dL (NEG-TRACE) Urine Glucose (UA) NEG mg/dL (NEG) Urine Ketones 15 mg/dL (NEG) Urine Occult Blood TRACE (NEG) Urine Nitrite NEG (NEG) Urine Bilirubin NEG (NEG) Urine Leukocyte Esterase NEG (NEG) Urine RBC 3-5 /hpf (0-3) Urine WBC 0-2 /hpf (0-5) Urine Squamous Epithelial Cells 0-5 /hpf (0-5) Urine Bacteria NONE /hpf (NONE) Microscopic Urinalysis Comment CULT NOT INDICATED Result Diagram: 09/26/17 2350 09/26/17 2350 Sarita White MD Sep 27, 2017 11:29
--- NOTE | 2017-09-27 11:59 | EKG ---
Date Performed: 09/27/2017 Time Performed: 01:36:25 PTAGE: 71 years EKG: Sinus rhythm POSSIBLE LEFT ATRIAL ENLARGEMENT BORDERLINE ECG Compared to PREVIOUS TRACING , T-wave changes have improved. PREVIOUS TRACIN10/12/2000 12.15 DOCTOR: Johnny Nix Interpretating Date/Time 09/27/2017 11:58:17
[2017-09-27] MEDS: POTASSIUM CITRATE/CITRIC ACID SOLN 15 ML UDC PO SCH ×3 (15:09→20:54)
--- NOTE | 2017-09-27 17:28 | PD.CAR.PN ---
CVT Progress Note Subjective/Hospital Course: 71-year-old male with the acute cholecystitis biliary colic We'll consult dictated Laparoscopic cholecystectomy tomorrow Thanks J Objective: Vital Signs Date Time Temp Pulse Resp B/P (MAP) Pulse Ox O2 Delivery O2 Flow Rate FiO2 09/27/17 12:00 98.5 89 12 170/81 (110) 92 09/27/17 08:00 97.0 77 14 177/81 (113) 93 09/27/17 03:04 76 18 97 09/27/17 03:03 97.1 78 20 184/84 (117) 95 09/27/17 02:40 78 18 176/84 (114) 98 Room Air 09/27/17 01:51 78 18 186/86 (119) 97 Room Air 09/26/17 23:26 77 18 189/82 (117) 96 Room Air 09/26/17 23:03 98.1 88 20 193/90 (124) 96 Result Diagram: 09/26/17234909/26/17 257 Sarita White MD Sep 27, 2017 17:28
--- NOTE | 2017-09-27 17:35 | MB ---
cc: MD YADY,[facility] DATE OF CONSULTATION: 09/27/2017. REASON FOR CONSULTATION: Acute calculous cholecystitis. HISTORY OF PRESENT ILLNESS: This 71-year-old gentleman presented last night to the emergency room with bilateral abdominal pain and what he states is constipation for several hours. The patient was worked up and found to have acute calculous cholecystitis; hence, the consultation. PAST MEDICAL HISTORY: The past medical history is that of: 1. Chronic back pain. 2. Neck and back surgeries requiring a morphine pump placement as well as pain management process. PAST SURGICAL HISTORY: As above-noted with: 1. Several lumbar laminectomies. 2. A cervical fusion. 3. A pain pump placement MEDICATIONS: 1. Pain pump. 2. Percocet. 3. Wellbutrin. 4. Zantac. SOCIAL HISTORY: Noncontributory. PHYSICAL EXAMINATION: GENERAL: Physical examination reveals a pleasant 71-year-old male. HEAD, EYES, EARS, NOSE, THROAT: Normocephalic. No trauma to the head. Pupils equal and reactive. Extraocular muscles intact. NECK: The neck is supple. Bilateral carotid pulses. No bruits. CHEST: Clear. Bilateral breath sounds. HEART: Regular rhythm. ABDOMEN: Now soft. Active bowel sounds. No rebound. No guarding. No masses. The morphine pump is just over the iliac crest in the right lower quadrant slightly in the way of placing the ports for a laparoscopic cholecystectomy, but so be it. Groins are normal. EXTREMITIES: Within normal limits with good proximal and distal pulses. IMPRESSION AND RECOMMENDATIONS: I reviewed laboratory and diagnostic procedures. This pleasant gentleman presented with abdominal pain and underwent a CT scan of the abdomen and pelvis. This revealed acute cholecystitis with distention and stranding around it. At this point, I recommend a laparoscopic cholecystectomy. The patient is already on a pain pump and pain regimen, which he will continue when he goes home. I have discussed this with the patient in detail. He is slightly impatient with surgery and when he wants to have it. Patient consider the option of going home and have it done on an elective basis but I did not think this was a smart way to do it and I insist that the patient stays and have it done at this admission for a believe the patient may have a semi-gangrenous gallbladder with very thin wall which might perforate the next day or two if he goes home. The patient is scheduled for surgery tomorrow. Sarita REILLY/DAYANA /5:17 PM /5:25 PM JASS
--- NOTE | 2017-09-27 18:18 | RADRPT ---
EXAM DATE/TIME: 09/27/2017 17:51 [facility] COMPARISON: CHEST SINGLE AP, August 16, 2017, 11:56. INDICATIONS : Evaluate for pneumonia, pneumothorax, and communicable disease, pre op for cholecystectomy. MEDICAL HISTORY : None. SURGICAL HISTORY : Pain pump ENCOUNTER: Initial ACUITY: 1 day PAIN SCORE: 0/10 LOCATION: Bilateral chest FINDINGS: The lungs are clear without infiltrate, nodule, or mass. There is no appreciable pleural effusion fo r technique. Heart and mediastinum are unremarkable. CONCLUSION: No acute cardiopulmonary disease. Jorge Mullen MD on September 27, 2017 at 18:16 Board Certified Radiologist. This report was verified electronically.
[2017-09-27] MEDS: ESZOPICLONE 1 MG TAB PO PRN (20:54)
[2017-09-27] MEDS: LACTULOSE SYRUP 20 GM/30 ML CUP PO PRN (20:56)
[2017-09-28] VITALS (7 sets, daily range): BP systolic 130–147; BP diastolic 60–76; PULSE 76–91; RESP 14–26; TEMP 95.8–100.1; O2SAT 92–95
[2017-09-28] MEDS: PIPERACIL-TAZO 3.375 GM PREMIX 50 ML IV SCH ×4 (02:22→19:30)
[2017-09-28] MEDS: HYDROmorphone HCL PF 2 MG/ML VIAL IV PUSH PRN ×2 (03:00→21:56)
[2017-09-28] MEDS ORDERED: SIMETHICONE 80 MG CHEWABLE TAB CHEW ONE (04:30)
[2017-09-28 06:14] LABS: AUTOMATED NEUTROPHIL # 19.4 TH/MM3 (1.8-7.7); BASOPHIL % 0.2 % (0.0-2.0); EOSINOPHIL % 0.1 % (0.0-4.0); HEMATOCRIT 42.8 % (39.0-51.0); HEMOGLOBIN 14.3 GM/DL (13.0-17.0); LYMPH % 4.5 % (9.0-44.0); MEAN CELL VOLUME 91.7 FL (80.0-100.0); MEAN CORPUSCULAR HEMOGLOBIN 30.5 PG (27.0-34.0); MEAN CORPUSCULAR HGB CONC 33.3 % (32.0-36.0); MEAN PLATELET VOLUME 8.6 FL (7.0-11.0); MONOCYTE # 1.8 TH/MM3 (0-0.9); NEUT % 87.2 % (16.0-70.0); PLATELET COUNT 260 TH/MM3 (150-450); RED BLOOD COUNT 4.67 MIL/MM3 (4.50-5.90); RED CELL DISTRIBUTION WIDTH 13.3 % (11.6-17.2); WHITE BLOOD COUNT 22.2 TH/MM3 (4.0-11.0)
[2017-09-28 06:15] LABS: CHLORIDE 101 MEQ/L (98-107); SODIUM (NA) 136 MEQ/L (136-145)
[2017-09-28 07:05] LABS: ALBUMIN 2.7 GM/DL (3.4-5.0); ALKALINE PHOSPHATASE 62 U/L (45-117); ALT (GPT) 17 U/L (12-78); AST (GOT) 21 U/L (15-37); BICARBONATE 28.9 MEQ/L (21.0-32.0); CALCIUM 8.1 MG/DL (8.5-10.1); CREATININE 0.98 MG/DL (0.60-1.30); GLOMERULAR FILTRATION RATE 76 ML/MIN (>89); GLUCOSE,RANDOM 105 MG/DL (74-106); TOTAL BILIRUBIN ADULT 0.9 MG/DL (0.2-1.0); TOTAL PROTEIN 6.6 GM/DL (6.4-8.2)
[2017-09-28 07:06] LABS: BLOOD UREA NITROGEN 16 MG/DL (7-18)
[2017-09-28] MEDS: buPROPion HCL 150 MG SUSTAINED RELEASE TAB PO SCH ×2 (08:26→23:03)
[2017-09-28] MEDS: DOCUSATE SODIUM 50 MG/SENNA 8.6 MG TAB PO SCH ×2 (08:26→23:03)
[2017-09-28] MEDS: SODIUM CHLOR 0.9% 1000 ML INJ 1,000 ML IV SCH ×3 (08:26→23:01)
[2017-09-28] MEDS: POTASSIUM CITRATE/CITRIC ACID SOLN 15 ML UDC PO SCH ×4 (08:27→23:01)
[2017-09-28] MEDS: SODIUM CHLORIDE 0.9% FLUSH 10 ML FLUSH IV FLUSH SCH ×2 (09:00→21:00)
--- NOTE | 2017-09-28 11:52 | HHI.PR ---
Subjective Remarks Patient seen and evaluated in follow-up for abdominal pain secondary to acute colitis pain is improved. The patient likely for a cholecystectomy this afternoon. Discussed with patient and spouse Objective Vitals Vital Signs Date Time Temp Pulse Resp B/P (MAP) Pulse Ox O2 Delivery O2 Flow Rate FiO2 09/28/17 08:00 96.9 80 14 132/60 (84) 92 09/28/17 00:00 100.1 84 16 139/65 (89) 95 09/27/17 20:00 100.7 75 16 149/69 (95) 94 09/27/17 18:00 96.7 85 14 140/68 (92) 94 09/27/17 12:00 98.5 89 12 170/81 (110) 92 I/O 09/27/17 09/27/17 09/27/17 09/28/17 09/28/17 09/28/17 07:00 15:00 23:00 07:00 15:00 23:00 Intake Total 1434 ml 100 ml 1098 ml 1332 ml Output Total 425 ml 350 ml Balance 1009 ml 100 ml 1098 ml 982 ml Intake Oral 0 ml 480 ml IV Total 1434 ml 100 ml 1098 ml 852 ml Output Urine Total 425 ml 350 ml # Voids 2 3 # Bowel Movements 0 Result Diagram: 09/28/17 0440 09/28/17 0440 Objective Remarks GENERAL: This is a well-nourished, well-developed patient, in no apparent distress. CARDIOVASCULAR: Regular rate and rhythm without murmurs, gallops, or rubs. RESPIRATORY: Clear to auscultation. Breath sounds equal bilaterally. No wheezes , rales, or rhonchi. GASTROINTESTINAL: Abdomen soft, non-tender, nondistended. Normal active bowel sounds MUSCULOSKELETAL: Extremities without clubbing, cyanosis, or edema. NEURO: Alert & Oriented x4 to person, place, time, situation. Moves all ext x4 A/P Problem List: (1) Chronic back pain ICD Code: M54.9 - Dorsalgia, unspecified; G89.29 - Other chronic pain Plan: Patient on Dilaudid with Percocet at home due to chronic back pain. Pain management (2) Constipation due to opioid therapy ICD Code: K59.03 - Drug induced constipation; T40.2X5A - Adverse effect of other opioids, initial encounter Plan: Ptn on Relistor (3) Acute cholecystitis ICD Code: K81.0 - Acute cholecystitis Status: Acute Plan: OR today Continue with nothing by mouth status, IV hydration, continue with IV Dilaudid and empiric Zosyn Discharge Planning Discharge in a.m. pending surgery Teressa Carlson MD Sep 28, 2017 11:52
[2017-09-28] MEDS ORDERED: SOD PHOSPHATE/SOD BIPHOSPHATE (ADULT) ENEMA 133ML RECTAL PRN (12:00)
[2017-09-28] MEDS ORDERED: BUPIVACAINE/EPINEPHRINE 0.25% 50 ML VIAL ONE ×2 (14:44→14:52)
[2017-09-28] MEDS ORDERED: METOPROLOL TARTRATE 25 MG TAB PO PRN (15:45)
[2017-09-28] MEDS ORDERED: SODIUM CHLORID 0.9% 500 ML IV PRN (15:45)
[2017-09-28] MEDS ORDERED: POVIDONE IODINE 5% (ANTISEPSIS KIT) 4 APPLICATIONS EACH NARE PRN (15:45)
[2017-09-28] MEDS ORDERED: CHLORHEXIDINE GLUCONATE 2 % 1 PACK (2 CLOTHS) TOPICAL PRN (15:45)
[2017-09-28] MEDS ORDERED: LACTATED RINGER'S 1000 ML IV PRN (15:45)
[2017-09-28] MEDS ORDERED: MIDAZOLAM HCL 2 MG/2 ML VIAL ONE (17:39)
[2017-09-28] MEDS ORDERED: FAMOTIDINE 20 MG/2 ML VIAL ONE (17:40)
[2017-09-28] MEDS ORDERED: fentaNYL CITRATE 250 MCG/5 ML AMP ONE (17:43)
[2017-09-28] MEDS ORDERED: HYDROmorphone HCL PF 1 MG/ML VIAL ONE (17:43)
[2017-09-28] MEDS ORDERED: KETOROLAC TROMETHAMINE 30 MG/ML (IVP) VIAL ONE (18:37)
[2017-09-28] MEDS ORDERED: DO NOT ADM ANY ANTICOAGULANT DRUGS PRN (21:45)
--- NOTE | 2017-09-28 22:12 | EKG ---
Date Performed: 09/27/2017 Time Performed: 19:04:48 PTAGE: 71 years EKG: Sinus rhythm POSSIBLE LEFT ATRIAL ENLARGEMENT BORDERLINE ECG PREVIOUS TRACING : 09/27/2017 01.36 DOCTOR: Lisa Maravilla Interpretating Date/Time 09/28/2017 22:04:03
[2017-09-29] VITALS (21 sets, daily range): BP systolic 89–155; BP diastolic 43–81; PULSE 66–86; RESP 11–31; TEMP 97.9–99.5; O2SAT 92–98
[2017-09-29] MEDS: ESZOPICLONE 1 MG TAB PO PRN (00:01)
[2017-09-29] MEDS: HYDROmorphone HCL PF 2 MG/ML VIAL IV PUSH PRN ×2 (02:33→09:46)
[2017-09-29] MEDS: PIPERACIL-TAZO 3.375 GM PREMIX 50 ML IV SCH ×4 (02:33→20:10)
[2017-09-29] MEDS ORDERED: CHLORHEXIDINE GLUCONATE 2 % 1 PACK (2 CLOTHS)(extra cloths) TOPICAL PRN (06:45)
[2017-09-29 07:53] LABS: AUTOMATED NEUTROPHIL # 13.5 TH/MM3 (1.8-7.7); BASOPHIL % 0.2 % (0.0-2.0); EOSINOPHIL % 0.1 % (0.0-4.0); HEMATOCRIT 39.3 % (39.0-51.0); HEMOGLOBIN 12.6 GM/DL (13.0-17.0); LYMPH % 7.4 % (9.0-44.0); LYMPHOCYTE # 1.2 TH/MM3 (1.0-4.8); MEAN CELL VOLUME 91.8 FL (80.0-100.0); MEAN CORPUSCULAR HEMOGLOBIN 29.4 PG (27.0-34.0); MEAN PLATELET VOLUME 8.1 FL (7.0-11.0); MONO % 7.4 % (0.0-8.0); MONOCYTE # 1.2 TH/MM3 (0-0.9); NEUT % 84.9 % (16.0-70.0); PLATELET COUNT 233 TH/MM3 (150-450); RED BLOOD COUNT 4.29 MIL/MM3 (4.50-5.90); WHITE BLOOD COUNT 15.9 TH/MM3 (4.0-11.0)
[2017-09-29] MEDS: DOCUSATE SODIUM 50 MG/SENNA 8.6 MG TAB PO SCH ×2 (08:01→20:10)
[2017-09-29] MEDS: SODIUM CHLORIDE 0.9% FLUSH 10 ML FLUSH IV FLUSH SCH ×2 (08:01→20:11)
[2017-09-29] MEDS: buPROPion HCL 150 MG SUSTAINED RELEASE TAB PO SCH ×2 (08:01→20:11)
[2017-09-29 08:04] LABS: CHLORIDE 104 MEQ/L (98-107); SODIUM (NA) 137 MEQ/L (136-145)
[2017-09-29 08:08] LABS: ALBUMIN 2.5 GM/DL (3.4-5.0); BICARBONATE 28.2 MEQ/L (21.0-32.0); BLOOD UREA NITROGEN 19 MG/DL (7-18); CALCIUM 7.7 MG/DL (8.5-10.1); GLUCOSE,RANDOM 93 MG/DL (74-106)
[2017-09-29 08:11] LABS: ALT (GPT) 23 U/L (12-78); AST (GOT) 39 U/L (15-37); GLOMERULAR FILTRATION RATE 84 ML/MIN (>89)
[2017-09-29] MEDS: POTASSIUM CITRATE/CITRIC ACID SOLN 15 ML UDC PO SCH ×4 (08:11→20:11)
[2017-09-29 08:13] LABS: TOTAL BILIRUBIN ADULT 0.5 MG/DL (0.2-1.0); TOTAL PROTEIN 6.6 GM/DL (6.4-8.2)
[2017-09-29 08:14] LABS: ALKALINE PHOSPHATASE 63 U/L (45-117)
[2017-09-29] MEDS: SODIUM CHLOR 0.9% 1000 ML INJ 1,000 ML IV SCH (11:27)
[2017-09-29] MEDS ORDERED: ACETAMINOPHEN/HYDROcodone 325 MG/10 MG TAB PO PRN (14:15)
[2017-09-29] MEDS ORDERED: MAGNESIUM HYDROXIDE SUSP 30 ML CUP PO ONE (14:15)
[2017-09-29] MEDS: LACTULOSE SYRUP 20 GM/30 ML CUP PO PRN (14:18)
--- NOTE | 2017-09-29 14:22 | HHI.PR ---
Subjective Remarks Patient seen today in follow-up postoperatively after laparoscopic cholecystectomy. Patient complaining of pain relatively controlled Dilaudid however he is quite sleepy with Dilaudid. He also was complaining of constipation. Plan of care discussed with patient, nursing team Objective Vitals Vital Signs Date Time Temp Pulse Resp B/P (MAP) Pulse Ox O2 Delivery O2 Flow Rate FiO2 09/29/17 13:00 74 15 134/65 (88) 09/29/17 12:00 99.5 78 24 125/61 (82) 94 09/29/17 10:00 84 24 149/81 (103) 09/29/17 08:00 98.1 70 23 140/77 (98) 96 09/29/17 07:54 96 Nasal Cannula 2.00 09/29/17 07:00 74 16 136/74 (94) 09/29/17 06:27 97.9 73 18 131/72 (91) 98 09/29/17 06:00 72 16 122/55 (77) 98 09/29/17 05:00 74 16 130/66 (87) 97 09/29/17 04:00 74 19 137/62 (87) 95 09/29/17 03:06 16 09/29/17 02:00 70 13 134/69 (90) 96 09/29/17 01:35 96 Venturi Mask 6.00 50 09/29/17 01:00 78 31 118/59 (78) 92 09/29/17 00:04 72 15 129/58 (81) 96 09/28/17 23:30 76 17 130/64 (86) 95 09/28/17 21:47 97.5 86 26 147/76 (99) 95 09/28/17 21:15 83 09/28/17 21:15 97.6 83 14 152/67 (95) 96 Nasal Cannula 2 09/28/17 21:00 82 14 155/71 (99) 96 Nasal Cannula 2 09/28/17 20:45 87 14 154/78 (103) 94 Nasal Cannula 2 09/28/17 20:30 91 09/28/17 20:30 98.2 91 14 156/77 (103) 97 Simple Mask 5 09/28/17 15:00 98.6 78 17 135/75 (95) 94 I/O 2/5/18 2/5/18 09/28/17 09/29/17 09/29/17 09/29/17 07:00 15:00 23:00 07:00 15:00 23:00 Intake Total 1332 ml 1320 ml Output Total 350 ml 1100 ml 200 ml 550 ml Balance 982 ml -1100 ml 1120 ml -550 ml Intake Oral 480 ml 120 ml IV Total 852 ml Other 1200 ml Output Urine Total 350 ml 1100 ml 300 ml Drainage Total 250 ml Estimated Blood Loss 200 ml Bladder Scan Volume Amount 57 ml # Voids 3 0 Result Diagram: 09/29/17 0720 09/29/17 0720 Imaging Last Impressions Chest X-Ray 09/27/17 0000 Signed Impressions: Service Date/Time: Wednesday, September 27, 2017 17:51 - CONCLUSION: No acute cardiopulmonary disease. Jorge Mullen MD Abdomen/Pelvis CT 09/26/17 2343 Signed Impressions: Service Date/Time: Wednesday, September 27, 2017 00:46 - CONCLUSION: 1. Abnormal appearance of the gallbladder characteristic of cholecystitis. 2. Diverticulosis without diverticulitis. 3. Renal cysts and malrotated right kidney. Ruben Gamboa MD Objective Remarks GENERAL: This is a well-nourished, well-developed patient, in no apparent distress. CARDIOVASCULAR: Regular rate and rhythm without murmurs, gallops, or rubs. RESPIRATORY: Clear to auscultation. Breath sounds equal bilaterally. No wheezes , rales, or rhonchi. GASTROINTESTINAL: Abdomen soft, non-tender, nondistended. Normal active bowel sounds, left-sided [place] drain MUSCULOSKELETAL: Extremities without clubbing, cyanosis, or edema. NEURO: Alert & Oriented x4 to person, place, time, situation. Moves all ext x4 A/P Problem List: (1) Chronic back pain ICD Code: M54.9 - Dorsalgia, unspecified; G89.29 - Other chronic pain Plan: Patient on Dilaudid with Percocet at home due to chronic back pain. Pain management (2) Constipation due to opioid therapy ICD Code: K59.03 - Drug induced constipation; T40.2X5A - Adverse effect of other opioids, initial encounter Plan: Ptn on Relistor add regimen, patient education (3) Acute cholecystitis ICD Code: K81.0 - Acute cholecystitis Status: Acute Plan: Status post laparoscopic cholecystectomy. Now with drain. Gangrenous gallbladder General surgery following Diet advance Pain control Teressa Carlson MD Sep 29, 2017 14:22
[2017-09-29] MEDS: BISACODYL 10 MG SUPP RECTAL PRN (17:49)
--- NOTE | 2017-09-29 19:06 | PD.CAR.PN ---
CVT Progress Note Subjective/Hospital Course: 71-year-old male with the acute cholecystitis biliary colic We'll consult dictated Laparoscopic cholecystectomy tomorrow Thanks Jennifer 09/29/2017 patient doing well status post laparoscopic cholecystectomy for gangrenous gallbladder Incisions are clean and dry remove ISRRAEL drain Advanced to regular diet Patient can be discharged from my point any time can shower tomorrow and get everything wet In the face of gangrenous cholecystitis we will send patient home on p.o. antibiotics for 3-4 days at least Follow-up with my office in about 2 weeks Objective: Vital Signs Date Time Temp Pulse Resp B/P (MAP) Pulse Ox O2 Delivery O2 Flow Rate FiO2 09/29/17 18:00 82 09/29/17 18:00 80 21 155/73 (100) 09/29/17 17:00 68 21 96/43 (60) 09/29/17 16:00 66 09/29/17 16:00 99.0 66 23 89/48 (62) 09/29/17 15:00 74 22 115/67 (83) 09/29/17 14:00 72 09/29/17 14:00 72 15 129/66 (87) 09/29/17 13:00 74 15 134/65 (88) 09/29/17 12:00 99.5 78 24 125/61 (82) 94 09/29/17 12:00 78 09/29/17 10:00 86 09/29/17 10:00 84 24 149/81 (103) 09/29/17 08:00 74 09/29/17 08:00 98.1 70 23 140/77 (98) 96 09/29/17 07:54 96 Nasal Cannula 2.00 09/29/17 07:00 74 16 136/74 (94) 09/29/17 06:27 97.9 73 18 131/72 (91) 98 09/29/17 06:00 72 16 122/55 (77) 98 09/29/17 05:00 74 16 130/66 (87) 97 09/29/17 04:00 74 19 137/62 (87) 95 09/29/17 03:06 16 09/29/17 02:00 70 13 134/69 (90) 96 09/29/17 01:35 96 Venturi Mask 6.00 50 09/29/17 01:00 78 31 118/59 (78) 92 09/29/17 00:04 72 15 129/58 (81) 96 09/28/17 23:30 76 17 130/64 (86) 95 09/28/17 21:47 97.5 86 26 147/76 (99) 95 09/28/17 21:15 83 09/28/17 21:15 97.6 83 14 152/67 (95) 96 Nasal Cannula 2 09/28/17 21:00 82 14 155/71 (99) 96 Nasal Cannula 2 09/28/17 20:45 87 14 154/78 (103) 94 Nasal Cannula 2 09/28/17 20:30 91 09/28/17 20:30 98.2 91 14 156/77 (103) 97 Simple Mask 5 Labs: Laboratory Tests Test 09/29/17 07:20 White Blood Count 15.9 TH/MM3 (4.0-11.0) Red Blood Count 4.29 MIL/MM3 (4.50-5.90) Hemoglobin 12.6 GM/DL (13.0-17.0) Hematocrit 39.3 % (39.0-51.0) Mean Corpuscular Volume 91.8 FL (80.0-100.0) Mean Corpuscular Hemoglobin 29.4 PG (27.0-34.0) Mean Corpuscular Hemoglobin Concent 32.0 % (32.0-36.0) Red Cell Distribution Width 13.0 % (11.6-17.2) Platelet Count 233 TH/MM3 (150-450) Mean Platelet Volume 8.1 FL (7.0-11.0) Neutrophils (%) (Auto) 84.9 % (16.0-70.0) Lymphocytes (%) (Auto) 7.4 % (9.0-44.0) Monocytes (%) (Auto) 7.4 % (0.0-8.0) Eosinophils (%) (Auto) 0.1 % (0.0-4.0) Basophils (%) (Auto) 0.2 % (0.0-2.0) Neutrophils # (Auto) 13.5 TH/MM3 (1.8-7.7) Lymphocytes # (Auto) 1.2 TH/MM3 (1.0-4.8) Monocytes # (Auto) 1.2 TH/MM3 (0-0.9) Eosinophils # (Auto) 0.0 TH/MM3 (0-0.4) Basophils # (Auto) 0.0 TH/MM3 (0-0.2) CBC Comment DIFF FINAL Differential Comment Blood Urea Nitrogen 19 MG/DL (7-18) Creatinine 0.90 MG/DL (0.60-1.30) Random Glucose 93 MG/DL (74-106) Total Protein 6.6 GM/DL (6.4-8.2) Albumin 2.5 GM/DL (3.4-5.0) Calcium Level 7.7 MG/DL (8.5-10.1) Alkaline Phosphatase 63 U/L (45-117) Aspartate Amino Transf (AST/SGOT) 39 U/L (15-37) Alanine Aminotransferase (ALT/SGPT) 23 U/L (12-78) Total Bilirubin 0.5 MG/DL (0.2-1.0) Sodium Level 137 MEQ/L (136-145) Potassium Level 4.2 MEQ/L (3.5-5.1) Chloride Level 104 MEQ/L (98-107) Carbon Dioxide Level 28.2 MEQ/L (21.0-32.0) Anion Gap 5 MEQ/L (5-15) Estimat Glomerular Filtration Rate 84 ML/MIN (>89) Result Diagram: 09/29/17 0720 09/29/17 0720 Sarita White MD Sep 29, 2017 19:06
[2017-09-29] MEDS ORDERED: CALCIUM CARBONATE 500 MG CHEWABLE TAB CHEW PRN (22:45)
--- NOTE | 2017-09-29 22:46 | MP ---
cc: KRISTINE CONTEH MD DATE OF SURGERY: 09/28/2017 PREOPERATIVE DIAGNOSIS: Acute calculous cholecystitis. POSTOPERATIVE DIAGNOSIS: Acute calculous cholecystitis. Gangrene of the gallbladder. OPERATIVE PROCEDURE Laparoscopic cholecystectomy SURGEON Dr. Conteh. ANESTHESIA: General. ESTIMATED BLOOD LOSS: 100 cc. DESCRIPTION OF PROCEDURE: The patient was prepped and draped in the usual fashion. Supraumbilical incision made, deepened down through the fascia. Under direct vision Anel cannula is placed. The abdomen insufflated with CO2 and the patient tilted in reverse Trendelenburg to the left. The 30 degree camera is now used visualize the abdomen. The patient has massive inflamed gallbladder which appears to be green and black in color, clearly gangrenous for most part. Subxiphoid and right upper quadrant ports were placed and gallbladder is elevated on the alligator clamp very carefully not to tear it. The cystic duct and cystic artery are carefully identified, triple ligated with Ligaclips and divided and the gallbladder is taken off the liver bed using spatula cautery instrument and delivered through the subumbilical incision using EndoCatch bag. The area irrigated with copious amounts of saline. Some Kayla hemostatic powder is placed and then a 7 flat ISRRAEL drain is placed considering the amount of inflammation there. The instruments are withdrawn. Incisions closed with 0 Vicryl and 4-0 Monocryl. The patient tolerated the procedure well. Kristine REILLY/KAREN /3:47 PM /10:27 PM
[2017-09-29] MEDS: FAMOTIDINE 20 MG TAB PO SCH (23:20)
[2017-09-30] VITALS: TEMP 97.5; O2SAT 94
[2017-09-30] MEDS: PIPERACIL-TAZO 3.375 GM PREMIX 50 ML IV SCH ×2 (01:50→08:13)
[2017-09-30 04:00] VITALS: BP 128/65; PULSE 70; RESP 26; TEMP 97.6; O2SAT 93
[2017-09-30] MEDS ORDERED: CHLORHEXIDINE GLUCONATE 2 % 1 PACK (2 CLOTHS)(taper/protocol) TOPICAL SCH (04:00)
[2017-09-30 08:00] VITALS: BP 134/82; PULSE 68; PULSE 74; RESP 11; TEMP 97.6
[2017-09-30] MEDS: POTASSIUM CITRATE/CITRIC ACID SOLN 15 ML UDC PO SCH (08:13)
[2017-09-30] MEDS: FAMOTIDINE 20 MG TAB PO SCH (08:13)
[2017-09-30] MEDS: SODIUM CHLORIDE 0.9% FLUSH 10 ML FLUSH IV FLUSH SCH (08:13)
[2017-09-30] MEDS: buPROPion HCL 150 MG SUSTAINED RELEASE TAB PO SCH (08:13)
[2017-09-30] MEDS: DOCUSATE SODIUM 50 MG/SENNA 8.6 MG TAB PO SCH (08:13)
[2017-09-30] MEDS ORDERED: POLYETHYLENE GLYCOL 17 GM PKG PO SCH (09:00)
[2017-09-30 10:00] VITALS: PULSE 68
[2017-09-30] MEDS ORDERED: LACT10SO PO (11:10)
[2017-09-30] MEDS ORDERED: METH-759 PO (11:10)
[2017-09-30] MEDS ORDERED: AMOX500T2 PO (11:10)
--- NOTE | 2017-09-30 11:11 | HHI.DCPOC ---
Discharge Care Plan Diagnosis: (1) Acute cholecystitis Goals to Promote Your Health * To prevent worsening of your condition and complications * To maintain your health at the optimal level Directions to Meet Your Goals Take your medications as prescribed Follow your dietary instruction Follow activity as directed Keep your appointments as scheduled Take your immunizations and boosters as scheduled If your symptoms worsen call your PCP, if no PCP go to Urgent Care Center or Emergency Room Smoking is Dangerous to Your Health. Avoid second hand smoke Call the 24-hour hour crisis hotline for domestic abuse at Teressa Carlson MD Sep 30, 2017 11:11
--- NOTE | 2017-09-30 14:33 | HHI.DS ---
Discharge Summary Admission Date Sep 27, 2017 at 01:28 Discharge Date: Sep 30, 2017 Admitting Diagnosis acute cholecystitis (1) Chronic back pain ICD Code: M54.9 - Dorsalgia, unspecified; G89.29 - Other chronic pain (2) Constipation due to opioid therapy ICD Code: K59.03 - Drug induced constipation; T40.2X5A - Adverse effect of other opioids, initial encounter (3) Acute cholecystitis ICD Code: K81.0 - Acute cholecystitis Status: Acute Procedures Lap Choley Brief History - From Admission This patient is a 71-year-old gentleman with a history of chronic pain on physical Dilaudid pump who came in with acute onset of right upper quadrant abdominal pain associated with severe nausea and vomiting. Pain was severe and is somewhat relieved with Dilaudid although not resolved. He actually has had intermittent abdominal discomfort over the last several weeks. He denies any abdominal surgeries but admits he has chronic constipation which is per his providers due to opioids. He has recently been started on relistor with some relief. The patient has not had any fevers or chills, there is been no hematemesis or hematochezia. Patient is admitted to the hospital due to these symptoms. A CT of the abdomen and pelvis was worrisome for cholecystitis. CBC/BMP: 09/29/17 0720 09/29/17 0720 Significant Findings Laboratory Tests Test 09/28/17 04:40 09/29/17 06:30 09/29/17 07:20 White Blood Count 22.2 TH/MM3 (4.0-11.0) 15.9 TH/MM3 (4.0-11.0) Neutrophils (%) (Auto) 87.2 % (16.0-70.0) 84.9 % (16.0-70.0) Lymphocytes (%) (Auto) 4.5 % (9.0-44.0) 7.4 % (9.0-44.0) Neutrophils # (Auto) 19.4 TH/MM3 (1.8-7.7) 13.5 TH/MM3 (1.8-7.7) Monocytes # (Auto) 1.8 TH/MM3 (0-0.9) 1.2 TH/MM3 (0-0.9) Albumin 2.7 GM/DL (3.4-5.0) 2.5 GM/DL (3.4-5.0) Calcium Level 8.1 MG/DL (8.5-10.1) 7.7 MG/DL (8.5-10.1) Estimat Glomerular Filtration Rate 76 ML/MIN (>89) 84 ML/MIN (>89) Red Blood Count 4.29 MIL/MM3 (4.50-5.90) Hemoglobin 12.6 GM/DL (13.0-17.0) Blood Urea Nitrogen 19 MG/DL (7-18) Aspartate Amino Transf (AST/SGOT) 39 U/L (15-37) Imaging Last Impressions Chest X-Ray 09/27/17 0000 Signed Impressions: Service Date/Time: Wednesday, September 27, 2017 17:51 - CONCLUSION: No acute cardiopulmonary disease. KInes Mullen MD Abdomen/Pelvis CT 09/26/17 2343 Signed Impressions: Service Date/Time: Wednesday, September 27, 2017 00:46 - CONCLUSION: 1. Abnormal appearance of the gallbladder characteristic of cholecystitis. 2. Diverticulosis without diverticulitis. 3. Renal cysts and malrotated right kidney. Ruben Gamboa MD PE at Discharge GENERAL: This is a well-nourished, well-developed patient, in no apparent distress. CARDIOVASCULAR: Regular rate and rhythm without murmurs, gallops, or rubs. RESPIRATORY: Clear to auscultation. Breath sounds equal bilaterally. No wheezes , rales, or rhonchi. GASTROINTESTINAL: Abdomen soft, non-tender, nondistended. Normal active bowel sounds, left-sided ISRRAEL drain MUSCULOSKELETAL: Extremities without clubbing, cyanosis, or edema. NEURO: Alert & Oriented x4 to person, place, time, situation. Moves all ext x4 Pt update on day of discharge Seen and evaluated today in follow-up for laparoscopic cholecystectomy of gangrenous gallbladder. Doing better. Drains removed. Discharge plans discussed with patient Hospital Course Patient is a very pleasant 71-year-old gentleman seen and evaluated for abdominal pain related to acute cholecystitis. He did have a cholecystectomy done by Dr. Rodriguez. He did well with empiric antibiotics and was discharged on oral medications. He also had significant constipation due to his chronic narcotics. This is resolved. Pt Condition on Discharge: Good Discharge Disposition: Discharge Home Discharge Time: <= 30 minutes Discharge Instructions DIET: Follow Instructions for: As Tolerated, No Restrictions Activities you can perform: Regular-No Restrictions Follow up Referrals: Vascular Surgery - 2 Weeks with Sarita White MD New Medications: Amoxicillin-Clavulanate (Amoxicillin-Clavulanate) 500-125 mg Tab 500 MG PO BID for Infection, #12 TAB 0 Refills Lactulose Liq (Lactulose Liq) 10 Gm/15 Ml Soln 30 ML PO Q6H PRN for CONSTIPATION, #62 ML 0 Refills Methylnaltrexone (Relistor) 150 Mg Tab 450 MG PO DAILY for Prevent Constipation, #30 TAB 0 Refills Continued Medications: Bupropion HCl ER 24 HR (Wellbutrin Xl 24 HR) 300 Mg Tab 300 MG PO DAILY for Control Depression, TAB 0 Refills Eszopiclone (Lunesta) 1 Mg Tab 1 MG PO HS PRN for INSOMNIA, TAB 0 Refills Oxycodone (Oxycodone) 5 Mg Tab 5 MG PO Q4H PRN for PAIN, TAB 0 Refills Potassium Citrate-Citric Acid (Potassium Citrate-Citric Acid) 1,100-334 Mg/5 Ml Soln 15 ML PO QID, ML 0 Refills Ranitidine (Zantac) 150 Mg Tab 150 MG PO DAILY for Reduce Stomach Acid, #30 TAB 0 Refills [pain pump dilaudid] () [urinary med] () Teressa Carlson MD Sep 30, 2017 14:33
== END 2017-09-30 12:36 | disposition home or self-care (01) | DRG 419 ==
LOC: PHED 22:52 → PHEDA 09-27 01:28 → PH3A 09-27 02:56 → PHICU 09-28 21:27
PROVIDERS: ADMIT Hospitalist; ATTEND Hospitalist
PROC: 0FT44ZZ Resection of Gallbladder, Percutaneous Endoscopic Approach (ICD-10-PCS; principal; 2017-09-28 18:43)
DX: K80.12 Calculus of gallbladder with acute and chronic cholecystitis without obstruction (principal); G89.29 Other chronic pain; Z79.891 Long term (current) use of opiate analgesic; Z96.89 Presence of other specified functional implants; K59.03 Drug induced constipation; M54.9 Dorsalgia, unspecified
CPT/HCPCS: 71045; 74177; 80053; 81001; 83690; 85025; 85610; 85730; 87070; 87205; 87641; 88304; 93005; 96361; 96374; J1170; J1885; J2250; J2405; J2543; J3010; J7030; J7120; Q9967

== ENCOUNTER 2017-11-30 18:52 | Emergency (ER) | payer MEDICARE, OTHER ==
[~2017-11-30] VITALS: Ht 190.5 cm; Wt 95.1 kg
[~2017-11-30 18:52] MED LIST changes: +AMOX500T2 PO; -CLIN300C5 PO; +LACT10SO PO; +METH-759 PO; +POTASOL PO; +WELLTAB39 PO; +ZANT150T2 PO
[2017-11-30 19:03] VITALS: BP 163/77; PULSE 68; RESP 20; TEMP 98.6; O2SAT 98
[2017-11-30] MEDS ORDERED: AVOD0.5C PO (19:19)
[2017-11-30] MEDS ORDERED: CLOTCRE TOPICAL (19:21)
[2017-11-30] MEDS ORDERED: HYDR-3133 PO (19:21)
--- NOTE | 2017-11-30 20:31 | PD ---
HPI Chief Complaint: Skin Problem Time Seen by Provider: 19:33 Travel History International Travel<30 days: No Contact w/Intl Traveler<30days: No Traveled to known affect area: No History of Present Illness HPI 72-year-old male presents to the emergency room for evaluation of worsening rash over the past 1 month. Patient states the rash comes and goes but today is the worst it has been. He went to an urgent care center and was diagnosed with athlete's foot and has been applying the clotrimazole betamethasone topical cream to the area without any relief in symptoms. He also went to a life insurance agent twice and had a biopsy performed that was negative. He was diagnosed with hives. He has been taking Vistaril with moderate relief in itchiness. Patient denies any significant pain. He has history of chronic back pain for which he takes daily medication and has a pain pump. He also reports associated right lower extremity swelling that has been worsening over the past month. States that seem to significantly worsened yesterday. He denies any calf pain. Denies history of DVT or PE. He is not on blood thinners. PFSH Past Medical History Hx Anticoagulant Therapy: No Cardiovascular Problems: No Cerebrovascular Accident: No Diabetes: No Diminished Hearing: No Genitourinary: Yes (urinary frequency ) Implanted Vascular Access Dvce: Yes Musculoskeletal: Yes (chronic back pain) Neurologic: No Psychiatric: No Respiratory: No Tetanus Vaccination: < 5 Years Influenza Vaccination: Yes Past Surgical History Body Medical Devices: SPINAL STIMULATOR, PAIN PUMP Cholecystectomy: Yes Other Surgery: Yes (multiple back surgeries, pain pump ) Social History Alcohol Use: No Tobacco Use: No Substance Use: No Allergies-Medications (Allergen,Severity, Reaction): Coded Allergies: cefuroxime (Verified Allergy, Severe, 11/30/17) Reported Meds & Prescriptions Reported Meds & Active Scripts Active Reported Hydroxyzine HCl 25 Mg Tab 25 Mg PO TID Clotrimazole-Betamethasone Topical (Betamethasone/Clotrimazole) 1-0.05% Cream 1 Applic TOPICAL BID Avodart (Dutasteride) 0.5 Mg Cap 0.5 Mg PO DAILY Potassium Citrate-Citric Acid 1,100-334 Mg/5 Ml Soln 15 Ml PO QID Wellbutrin Xl 24 HR (Bupropion HCl) 300 Mg Tab 300 Mg PO DAILY Lunesta (Eszopiclone) 1 Mg Tab 1 Mg PO HS PRN [pain pump dilaudid] Oxycodone (Oxycodone HCl) 5 Mg Tab 5 Mg PO Q4H PRN Review of Systems Except as stated in HPI: all other systems reviewed are Neg Physical Exam Narrative GENERAL: Well-nourished, well-developed male in no acute distress. Afebrile. Ambulatory. SKIN: Focused skin assessment warm/dry. Multiple annular, flat, large, erythematous lesions throughout the body. HEAD: Normocephalic. EYES: No scleral icterus. No injection or drainage. NECK: Supple, trachea midline. No JVD or lymphadenopathy. CARDIOVASCULAR: Regular rate and rhythm without murmurs, gallops, or rubs. RESPIRATORY: Breath sounds equal bilaterally. No accessory muscle use. MUSCULOSKELETAL: No cyanosis. 1+ pitting edema to the right lower extremity. 2 + dorsalis pedis pulses are equal bilaterally. Negative Homans sign. No calf tenderness. Data Data Last Documented VS Vital Signs Date Time Temp Pulse Resp B/P (MAP) Pulse Ox O2 Delivery O2 Flow Rate FiO2 11/30/17 19:03 98.6 68 20 163/77 (105) 98 Orders Orders Us Leg Venous Doppler (11/30/17 ) [facility] Medical Decision Making Medical Screen Exam Complete: Yes Emergency Medical Condition: Yes Medical Record Reviewed: Yes Differential Diagnosis Hives, fungal infection, cellulitis, dermatitis, autoimmune disease, DVT Narrative Course 72-year-old male presents to the emergency room for evaluation of itchy rash throughout his body. Patient has been evaluated multiple times for this in the past. He has been treated for tinea corporis unsuccessfully. He was life insurance agent diagnosed him with hives. Vistaril improve symptoms. He also has had significant worsening of right lower extremity edema over the past day. Patient denies any calf pain or history of DVT or PE. Physical exam reveals multiple annular, flat, large, erythematous lesions throughout the body. He has 1+ pitting edema of the right lower extremity. Both legs are neurovascularly intact with 2+ dorsalis pedis pulse. Given acute worsening of symptoms, ultrasound of the right lower extremity is ordered. Patient signed out to nighttime provider pending results. Disposition: 01 DISCHARGE HOME Condition: Stable Sabrina Peres Nov 30, 2017 20:31
--- NOTE | 2017-11-30 22:06 | RADRPT ---
EXAM DATE/TIME: 11/30/2017 21:15 [place] COMPARISON: No previous studies available for comparison. INDICATIONS : Right leg pain. MEDICAL HISTORY : Back pain. SURGICAL HISTORY : Back and shoulder surgeries. ENCOUNTER: Subsequent ACUITY: 4 - 6 months PAIN SCORE: 3/10 LOCATION: Right leg. TECHNIQUE: Venous ultrasound of the leg was performed from the inguinal ligament to the proximal calf. Real-judy e, color Doppler and spectral tracing, compression and augmentation techniques were used. FINDINGS: There is normal compressibility of the deep venous system from the inguinal region to the proximal ca lf. No echogenic clot is seen in the lumen of the common femoral, femoral, popliteal, and posterior tibial veins. There is a normal response of the venous system to proximal and distal augmentation an d respiration. CONCLUSION: Normal examination. Eliezer Pacheco MD on November 30, 2017 at 22:03 Board Certified Radiologist. This report was verified electronically.
--- NOTE | 2017-11-30 22:33 | PD ---
Data Data Last Documented VS Vital Signs Date Time Temp Pulse Resp B/P (MAP) Pulse Ox O2 Delivery O2 Flow Rate FiO2 11/30/17 19:03 98.6 68 20 163/77 (105) 98 Orders Orders Us Leg Venous Doppler (11/30/17 ) Ed Discharge Order (11/30/17 22:32) MDM Supervised Visit with MCKAY: Yes Narrative Course Patient CARE assume from Sabrina Peres at 20/100. This is a 72-year-old male presents emergency department for evaluation of rash and swelling in the right lower extremity. He has been evaluated by a protection analyst several times and was told it was hives after biopsy 2. Patient's right lower extremity is significantly more swollen than the left lower extremity, DVT ultrasound was negative here in the emergency department. I discussed with him the other possibility is of chronic vasculitis however there is no petechia and no purpura that I see. I do not see any splinter hemorrhaging or Osler's nodes distally. Patient appears well and nontoxic overall. I do not think that any emergent condition exists here. Discussed with him symptomatic management follow-up with a primary care physician and return to ED criteria. He is stable for discharge Diagnosis Primary Impression: Hives Referrals: ADE JUAREZ M.D. (PCP) call for appointment Patient Instructions: General Instructions Departure Forms: Tests/Procedures Disposition: 01 DISCHARGE HOME Condition: Stable Rolando De Anda MD Nov 30, 2017 22:33
== END 2017-11-30 22:46 | disposition home or self-care (01) ==
LOC: PHEFT 18:52
DX: L50.9 Urticaria, unspecified (principal); G89.29 Other chronic pain; M54.9 Dorsalgia, unspecified; M79.89 Other specified soft tissue disorders
CPT/HCPCS: 93971; 99284